=== PATIENT | female | born 1965 | race Caucasian/White ===

== ENCOUNTER 2021-03-08 14:06 | Inpatient (IN) | payer BC ==
[~2021-03-08] VITALS: Ht 165.1 cm; Wt 121.8 kg
--- NOTE | ~2021-03-08 | EMS ---
[facility] [address] [place] [address] EMS Patient Care Report Name: LISA FINCH Room #: PRE MONROE Pruitt#: [id number] Admission: Attend Phys: Discharge: Date of : 67 Report #: [id number] THIS REPORT FOR: //name// Report Transmitted: 03/08/2021 13:33 EMS Care Summary [facility] MED-ACT Incident [id number] @ 03/08/2021 13:17 Incident [address] [place] [address] Patient LISA FINCH Female, 56 Years 1965 Patient Address [address] [place] [address] Patient History Congestive Heart Failure (CHF),Novel Coronavirus (COVID-19), Patient Allergies Hydrocodone,Valium, Patient Medications Albuterol, Chief Complaint "My chest feels funny" Disposition Transported No Lights/[place] Dispatch Reason Breathing Problem Transported To [facility] Narrative [id number] responded emergent to a residence for a COVID positive pt with reported difficulty breathing. [id number] arrived on scene to find the pt laying supine in [facility] [address] [place] [address] EMS Patient Care Report Name: LISA FINCH Room #: PRE M.R.#: [id number] Admission: Attend Phys: Discharge: Date of : 67 Report #: [id number] bed, eyes closed, with family at her side and FD on pt care. Pt appears to be in no obvious respiratory distress. Family reports pt was diagnosed with COVID on 02/23. They state pt had not been feeling well today and noted her O2 on RA was 90% so they called 911. Pt reports a "funny feeling" and heaviness in her chest. It is noted pt shows a-fib on the monitor but pt states she has no known hx of a-fib but does have a hx of CHF. Pt has a non productive cough as well. Pt states she does feel short of breath. Pt is able to speak in full, clear sentences and has no accessory muscle use during respiration. Vitals, EKG and 12 lead as charted. Pt is able to sit on edge of bed, stand and take a few unassisted steps to the cot. Pt lays on cot in position of comfort and secured via 5 point seatbelt. Pt moved to ambulance. O2, ASA and IV as charted. Transport begins. Pt is quiet during transport, with eyes closed and in no distress. Pt to room 12, report given to RN and pt moved to bed via sheet without incident. Initial Vitals @13:31P: 140,SpO2: 92,ID Suspected: false @PTAP: 140,SpO2: 92, @13:56P: 113,SpO2: 96, @13:50P: 118,R: 14,BP: 118/84,SpO2: 94, @13:56P: 133,R: 14,BP: 114/53,SpO2: 96, @PTAP: 110,R: 16,BP: 152/90,Pain: 0/10,GCS: 15,SpO2: 93,Revised Trauma: 12, @13:39P: 71,R: 16,BP: 144/84,GCS: 15,Temp: 97.5F,SpO2: 96,Revised Trauma: 12, Impression Cardiac arrhythmia/dysrhythmia Procedures @13:30 ALS Assessment Response: UnchangedSucceeded @13:31 12-Lead ECG Response: UnchangedSucceeded @PTASurgical Mask on Patient Response: Unchanged @13:37 Aspirin - 324 Milligrams (mg) - Oral Response: Unchanged @13:39 IV Therapy - Saline Lock 10cc (20 ga) Site: Antecubital-Right Response: UnchangedSucceeded Timeline WIRE LOOP MACHINE OPERATOR,Surgical Mask on Patient,Response: Unchanged WIRE LOOP MACHINE OPERATOR,BP: / M,PULSE: 140,RR: R,SPO2: 92 Ox,ETCO2: ,BG: ,PAIN: ,GCS: , [facility] [address] [place] [address] EMS Patient Care Report Name: LISA FINCH Room #: PRE M.R.#: [id number] Admission: Attend Phys: Discharge: Date of : 67 Report #: [id number] WIRE LOOP MACHINE OPERATOR,BP: 152/90 M,PULSE: 110,RR: 16 R,SPO2: 93 Ox,ETCO2: ,BG: ,PAIN: 0,GCS: 15, 13:16,Call Received 13:16,Psap Call 13:17,Dispatched 13:17,En Route 13:26,On Scene 13:28,At Patient 13:30,ALS Assessment,Response: UnchangedSucceeded, 13:31,12-Lead ECG,Response: UnchangedSucceeded, 13:31,BP: / M,PULSE: 140,RR: R,SPO2: 92 Ox,ETCO2: ,BG: ,PAIN: ,GCS: , 13:37,Aspirin - 324 Milligrams (mg) - Oral,Response: Unchanged 13:39,IV Therapy - Saline Lock 10cc 20 ga Site: Antecubital-Right,Response: UnchangedSucceeded, 13:39,BP: 144/84 M,PULSE: 71,RR: 16 R,SPO2: 96 Ox,ETCO2: ,BG: ,PAIN: ,GCS: 15, 13:43,Depart Scene 13:50,BP: 118/84 M,PULSE: 118,RR: 14 R,SPO2: 94 Ox,ETCO2: ,BG: ,PAIN: ,GCS: , 13:56,BP: / M,PULSE: 113,RR: R,SPO2: 96 Ox,ETCO2: ,BG: ,PAIN: ,GCS: , 13:56,BP: 114/53 M,PULSE: 133,RR: 14 R,SPO2: 96 Ox,ETCO2: ,BG: ,PAIN: ,GCS: , 14:02,At Destination 14:20,Call Closed Disclaimer v1.1 Copyright 2020 [email or web address] This EMS Care Summary contains data elements from the applicable legal record (which may be displayed differently). It is designed to provide pertinent information for the following purposes: continuity of care, clinical quality, and state data reporting. The complete legal record is available to ED staff and administrators of the receiving hospital in [employer]'s Patient Tracker. All data is provided "as is."
[2021-03-08 14:09] VITALS: BP 139/81
[2021-03-08 14:28] LABS: ABSOLUTE NEUTROPHILS 3.9 thou/uL (1.4-8.2); BASOPHILS 0.8 % (0.0-2.0); EOSINOPHILS 0.8 % (0.0-3.0); HEMATOCRIT 43.1 % (37.0-47.0); HEMOGLOBIN 14.6 gm/dL (12.0-15.0); LYMPHOCYTES 23.3 % (24.0-44.0); MCHC 33.9 g/dL (28.0-37.0); MCV 85.5 fL (80.0-100.0); MONOCYTES 11.5 % (1.0-8.0); PLATELET COUNT 313 thou/uL (150-400); POLYS 63.6 % (36.0-66.0); RBC 5.04 mil/uL (4.20-5.00); RDW 14.1 % (10.5-14.5); WBC 6.2 thou/uL (4.0-11.0)
[2021-03-08 14:47] LABS: CALCIUM 8.2 mg/dL (8.5-10.1); POTASSIUM 3.1 mmol/L (3.5-5.1)
[2021-03-08 14:52] LABS: ALBUMIN 2.2 g/dL (3.4-5.0); TOTAL BILIRUBIN 0.3 mg/dL (0.2-1.0); TOTAL PROTEIN 6.9 g/dL (6.4-8.2)
[2021-03-08 16:36] LABS: BE(vivo) -1.7 mmol/L (-2 to +3); HCO3 20.4 mmol/L (22.0-26.0); PCO2 28.1 mmHg (35.0-45.0); PO2 61.4 mmHg (80.0-100.0); pH 7.479 (7.360-7.450); sO2 93.4 % (92.0-98.0)
--- NOTE | 2021-03-08 18:10 | NUR ---
INFECTIOUS DISEASE WAS CONTACTED FOR A CONSULT @2120 AND A VOICEMAIL MESSAGE WAS LEFT.
[2021-03-08 22:23] VITALS: BP 122/72
[2021-03-08 23:55] VITALS: BP 120/71
[2021-03-09] VITALS (7 sets, daily range): BP systolic 115–131; BP diastolic 65–82
--- NOTE | 2021-03-09 04:12 | NUR ---
ADMISSION: PT ARRIVED ON UNIT FROM ER AT APPROX 2350. PT ALERT & ORIENTED X 4. CURRENTLY ON 4L O2 NC AND O2 SATS 90-93%. PT AFIB ON TELE MONITOR AND HAS CARDIZEM DRIP RUNNING AT 20MG/HR. HR 78-90. VSS AFEBRILE. NO C/O OF PAIN, NAUSEA/VOMITTING. PT IS ABLE TO MAKE NEEDS KNOWN. SBA TO BSC. CARE PLAN IN PLACE & INTERVENTIONS SET. ALL NEEDS ARE MET AT THIS TIME.
[2021-03-09 05:32] LABS: HEMATOCRIT 40.8 % (37.0-47.0); HEMOGLOBIN 13.8 gm/dL (12.0-15.0); MCH 29.1 pg (26.0-34.0); MCHC 33.8 g/dL (28.0-37.0); MCV 86.3 fL (80.0-100.0); RBC 4.73 mil/uL (4.20-5.00); RDW 14.2 % (10.5-14.5); WBC 4.9 thou/uL (4.0-11.0)
[2021-03-09 05:51] LABS: CALCIUM 7.9 mg/dL (8.5-10.1); CREATININE 1.1 mg/dL (0.6-1.0); POTASSIUM 3.9 mmol/L (3.5-5.1)
--- NOTE | 2021-03-09 07:59 | HC ---
[facility] [place] [address] [place] [address] CONSULTATION Name: LISA FINCH Room #: 364-P [facility] IN .R.#: [id number] Admission: 03/08/21 Attend Phys: Shirley Mclaughlin MD Discharge: Date of : 67 Report #: [id number] THIS REPORT FOR: cc: YESSICA - No family physician/PCP FAM - No family physician/PCP Jose Armando Ayoub MD ~ DATE OF SERVICE: 03/08/2021 CHIEF COMPLAINT: Shortness of breath. HISTORY OF PRESENT ILLNESS: This is a 56-year-old female with apparent history of CHF, hypertension, presenting with increasing dyspnea, cough and nausea. She has a history of chronic tobacco use. She apparently tested positive for COVID on 02/23/2021, not vaccinated. Since then, she has been getting more shortness of breath with a cough. Last evening, she noted palpitations and presented to the ER for evaluation. ECG reveals atrial fibrillation with a rapid ventricular rate. Chest x-ray revealed bilateral pneumonia. Only chest pain with deep coughing. PAST MEDICAL HISTORY: Remote history of CHF, unknown details. Not on any medication. ALLERGIES: VALIUM, DIAZEPAM AND HYDROCODONE. MEDICATIONS AT HOME: None. SOCIAL HISTORY: Chronic tobacco use, pack per day. FAMILY HISTORY: Negative for premature CAD. REVIEW OF SYSTEMS: A full 10-point review of systems performed. Only the pertinent positives and negatives are described in the HPI. PHYSICAL EXAMINATION: VITAL SIGNS: Blood pressure is 130/90, heart rate is 115 beats per minute. GENERAL APPEARANCE: An overweight female in respiratory distress. HEENT: Normocephalic, atraumatic. Oral mucosa moist. NECK: Supple. LUNGS: Few basilar rhonchi. CARDIAC: Distant heart sounds, tachycardic, irregular. S1, S2 positive. ABDOMEN: Protuberant, soft. EXTREMITIES: No cyanosis. Positive edema. LABORATORY DATA: Creatinine is 1.0. Troponin is negative. White count 6.2, hemoglobin is 14.6, oxygen saturation on room air is 93%. Chest x-ray reveals bilateral opacities suspicious for moderate to severe COVID pneumonia. [facility] [address] [place] [address] CONSULTATION Name: LISA FINCH Room #: 364-P [facility] IN M.R.#: [id number] Admission: 03/08/21 Attend Phys: Shirley Mclaughlin MD Discharge: Date of : 67 Report #: [id number] ECG reveals atrial fibrillation at 120 beats per minute. ASSESSMENT AND PLAN: 1. Atrial fibrillation with rapid ventricular rate, attributed to recent COVID pneumonia with hypoxia. Started on Cardizem, we will need anticoagulation therapy. Echo when respiratory status has stabilized. 2. Respiratory failure/COVID pneumonia, treated as per ID and Pulmonary. 3. Edema, hold on diuretic therapy at this time. 4. Tobacco use, complete smoking cessation is advised. <ELECTRONICALLY SIGNED> By: Jose Armando Ayoub MD 03/09/21 0759 1648 2230 Jose Armando Ayoub MD /emily
--- NOTE | 2021-03-09 12:30 | EKG ---
[address] [place] [address] ELECTROCARDIOGRAM REPORT Name: LISA FINCH Room #: 364-P ADM IN M.R.#: [id number] Admission: 03/08/21 Attend Phys: Shirley Mclaughlin MD Discharge: Date of : 67 Report #: [id number] [facility] ED Test Date: 2021-03-08 Test Time: 14:16:18 Pat Name: LISA FINCH Department: Room: 364 Gender: F Manager Lsw: yvonne : 1965 Requested By: Belgica Panchal Order Number: [id number] MD: Jose Armando Ayoub Measurements Intervals [place] Rate: 121 P: ND: QRS: 34 QRSD: 76 T: 28 QT: 307 QTc: 436 Interpretive Statements Atrial fibrillation Abnormal R-wave progression, early transition Baseline wander in lead(s) V2 No previous ECG available for comparison Electronically Signed On 03-09-2021 12:30:15 LABOR RELATIONS DIRECTOR by Jose Armando Ayoub [email or web address] <ELECTRONICALLY SIGNED> By: Jose Armando Ayoub MD 03/09/21 1230 1416 1416 Jose Armando Ayoub MD /EPI
--- NOTE | 2021-03-09 18:08 | NUR ---
PT LUNGS SOUND WHEEZY...ENCOUAGE C/DB AND USE OF IS...WEANED FROM 4L TO 3L THIS MORN...INQUIRED ABOUT A NICOTENE PATCH BUT PATIENT DECLINED...
[2021-03-10 04:06] LABS: GLYCOHEMOGLOBIN (HGB A1C) 7.1 % (4.8-5.6)
[2021-03-10 05:10] VITALS: BP 123/69
--- NOTE | 2021-03-10 06:04 | NUR ---
ASSUMED PT CARE AT 1900. PT ALERT & ORIENTED X 4. VSS AFEBRILE. PT IS CURRENTLY ON RA AND O2 SATS 93-95%. PT AFIB ON TELE MONITOR. HR 85-95. NO C/O OF PAIN, NAUSEA/VOMITTING. COLLECTED SPUTUM SAMPLE FOR CULTURE. AWAITNG RESULTS. PT IS ABLE TO MAKE NEEDS KNOWN. CONTINUE WITH PLAN OF CARE.
--- NOTE | 2021-03-10 07:13 | EKG ---
[place] [address] [facility] [place] [address] ELECTROCARDIOGRAM REPORT Name: LISA FINCH Room #: 364-P ADM IN M.R.#: [id number] Admission: 03/08/21 Attend Phys: Shirley Mclaughlin MD Discharge: Date of : 67 Report #: [id number] [facility] Test Date: 2021-03-09 Test Time: 07:54:46 Pat Name: LISA FINCH Department: Room: 364 P Gender: F Steward/Stewardess Third: NURIA : 1965 Requested By: Shirley Mclaughlin Order Number: [id number] MD: Hung Rider Measurements Intervals [place] Rate: 84 P: 246 MA: 50 QRS: 13 QRSD: 99 T: 2 QT: 367 QTc: 434 Interpretive Statements AFIB Short MA interval Low voltage, precordial leads Borderline repolarization abnormality Compared to ECG 03/08/2021 14:16:18 Short MA interval now present Low QRS voltage now present Electronically Signed On 03-10-2021 7:13:05 BOTTLING LINE ATTENDANT by Hung Rider [email or web address] <ELECTRONICALLY SIGNED> By: Hung Rider MD, [facility] 03/10/21 0713 0754 0754 Hung Rider MD, FACC /EPI
[2021-03-10 07:19] VITALS: BP 141/87
--- NOTE | 2021-03-10 07:35 | HC ---
[facility] [place] [address] CONSULTATION Name: LISA FINCH Room #: 364-P [facility] IN M.R.#: [id number] Admission: 03/08/21 Attend Phys: Shirley Mclaughlin MD Discharge: Date of : 67 Report #: [id number] THIS REPORT FOR: cc: YESSICA - Alison family physician/PCP YESSICA - No family physician/PCP Se Luciano MD ~ DATE OF SERVICE: 03/09/2021 INFECTIOUS DISEASE CONSULTATION ATTENDING PHYSICIAN: Dr. Shirley Mclaughlin. REASON FOR EVALUATION: COVID-19 infection, complicated by pneumonitis and respiratory failure. HISTORY OF PRESENT ILLNESS: Chart reviewed. The patient examined. This is a 56-year-old woman without significant medical history who had been ill for an excess of 2 weeks, was tested positive on 02/23/2021 with COVID-19, had shown fluctuating course including ultimately a more recent progressive dyspnea, cough, intermittent fevers, did note a depressed p.o. intake and although she was pushing fluids, due to concerns about shortness of breath, she did present to the Emergency Room. Evaluation was undertaken. Chest x-ray did show diffuse bilateral infiltrates. Coronavirus testing again was confirmed with positive PCR, although negative antigen, influenza testing was negative. Lactic acid 1.5. ABGs show pH 7.479, pCO2 of 28.1, pO2 of 61.4 on room air. Blood cultures collected at time of admission are sterile thus far. She was empirically started on therapy with ceftriaxone, azithromycin and corticosteroids. At this point, she states she feels better attributable to the supplemental oxygen, primarily. She is generally lucid. Denies significant GI related complaints at present. ALLERGIES: DIAZEPAM, HYDROCODONE. CURRENT MEDICATIONS: Include enoxaparin, atenolol, azithromycin, ceftriaxone, dexamethasone, ipratropium, albuterol inhaler. PAST MEDICAL HISTORY: Has known history of hypertension, cardiomyopathy with history of congestive heart failure, previous tonsillectomy, cholecystectomy, appendectomy, hysterectomy, history of depression. SOCIAL HISTORY: Smokes cigarettes, 54-uven-staa history. No ethanol, no illicit drug use. FAMILY HISTORY: Noncontributory. REVIEW OF SYSTEMS: Otherwise, unremarkable. [facility] [address] [place] [address] CONSULTATION Name: LISA FINCH Room #: 364-P [facility] IN [facility].#: [id number] Admission: 03/08/21 Attend Phys: Shirley Mclaughlin MD Discharge: Date of : 67 Report #: [id number] PHYSICAL EXAMINATION: GENERAL: She appears somewhat chronically ill. She is pleasant, cooperative, appropriate. VITAL SIGNS: Temperature 97.3, pulse 56, respirations 16, blood pressure 126/76. SKIN: Warm, dry, no rashes. HEENT: Normocephalic. Extraocular muscles intact. Nasal cannula in place. NECK: Supple. LUNGS: Bilateral scattered coarse breath sounds, somewhat diminished overall. HEART: Regular. I do not appreciate a murmur. ABDOMEN: Obese, somewhat firm, nontender. EXTREMITIES: No cyanosis. GENITOURINARY AND RECTAL: Deferred. LABORATORY DATA: Electrolytes: Sodium 141, potassium 3.9, chloride 108, bicarbonate is 21, anion gap of 12, BUN and creatinine 12 and 1.1, glucose of 266. CBC: White count of 4.9, H and H 13.8 and 40.8, platelets of 313. CTA of the chest showed no evidence of pulmonary embolus, multifocal pneumonia. Normal troponin. Lactic acid 1.5. D-dimer 1.12. ProBNP of 405. ASSESSMENT AND PLAN: COVID-19 infection, complicated by pneumonitis and respiratory failure, perhaps some underlying lung disease and may have some prediabetes as well noted. Initial glucose was 106; however, repeat was 266, probably induced by corticosteroids. We will continue current therapy with azithromycin, ceftriaxone. Try to obtain a sputum result. She is generally felt to be outside the window for remdesivir. Continue corticosteroids. We will add vitamins, oxygen therapy as allowed. Monitor expectantly. We will follow. <ELECTRONICALLY SIGNED> By: Se Luciano MD 03/10/21 0735 0801 0836 Se Luciano MD /nt
[2021-03-10 11:30] VITALS: BP 151/87
[2021-03-10 15:24] VITALS: BP 134/95
[2021-03-10 19:25] VITALS: BP 150/86
[2021-03-10 23:16] VITALS: BP 153/99
[2021-03-11 04:44] VITALS: BP 137/80
--- NOTE | 2021-03-11 04:57 | NUR ---
C/O being short of breath around 2315 , more than the usual. O2 sat in the mid 90's on 2L/NC. RT paged to give pt. a breathing tx with relief.Encouraged prone positioning and use of IS. Verbalized she does not think she could tolerate sleeping on her stomach. She gets very short of breath with minimal exertion. Up ad jeremías to the bathroom then gets tachycardic ( A fib RVR) but recovers after resting. Cont. on enhanced precaution , afebrile.
[2021-03-11 07:56] VITALS: BP 133/88
[2021-03-11 11:35] VITALS: BP 149/89
[2021-03-11 15:25] VITALS: BP 152/85
--- NOTE | 2021-03-11 16:15 | NUR ---
INITIAL ASSESSMENT: DOMINICK reviewed chart and spoke with nursing and attending physician. Pt was admitted from home due to chest pain/Afib with RVR/COVID pneumonia. Pt placed in Enhanced Isolation due to COVID. Pt has not had a COVID Vaccination. Pt had first positive test on 02/23. Pt is afebrile and on 2L of O2. Pt is on IV abx. DOMINICK spoke with pt via phone. Introduced role of SW. Pt is alert/orientated x 4. Pt reports she lives at home with her spouse and children. Prior to admission, pt was independent with ADLs. No use of DME. Pt does have an inhaler at home. Pt does not currently have a PCP, but is interested in provider groups at [facility]. No hx of services or post-acute placement. Plan is for pt to discharge home when medically stable. DOMINICK is following to assist as needed with discharge planning.
--- NOTE | 2021-03-11 18:32 | NUR ---
ASSUMED PATIENT CARE AT 0700. A/O X4. AFIB ON MONITOR. DENIES PAIN. AMBULATED IN ROOM. PROGRESSING TOWARDS POC GOALS.
[2021-03-11 19:37] VITALS: BP 155/90
[2021-03-11 19:50] VITALS: BP 130/73
[2021-03-12] VITALS (9 sets, daily range): BP systolic 130–154; BP diastolic 78–97
--- NOTE | 2021-03-12 03:33 | NUR ---
Slept intermittently during the night. She stated she is achy all over and can't get comfortable (tossing and turning on bed). She requested for ibuprofen. BIRD RAISER notified and order received. A fib per tele with episodes of HR in the 120's 140's when abulating to the bathroom. O2 at 2L/NC . She c/o of dry nose and bleeding because of that. Humidifier applied and stated it helped. Cont. on enhanced precaution , afebrile.
[2021-03-12 05:26] LABS: CALCIUM 8.1 mg/dL (8.5-10.1); CREATININE 0.9 mg/dL (0.6-1.0); POTASSIUM 4.5 mmol/L (3.5-5.1)
--- NOTE | 2021-03-12 05:56 | NUR ---
Glucose level per BMP this am 346 .SLAG MOTOR OPERATOR notified , BG ACHS with low dose SS ordered.
--- NOTE | 2021-03-12 15:15 | NUR ---
SW reviewed chart and spoke with nursing and attending physician. Pt remains in Enhanced Isolation due to COVID. Pt is afebrile and on 2L of O2. Pt started on cardizem gtt today due to A-fib. Pt to be given IV lasix. Discharge home is anticipated in 1-2 days. Will need rest/exercise oximetry ordered prior to discharge to determine home O2 needs. Plan is for pt to discharge home when medically stable. DOMINICK is following to assist as needed with discharge planning.
--- NOTE | 2021-03-12 16:07 | NUR ---
assumed care of pt at 0700. pt alert and oriented, mildly anxious at times. rapid afib this morning despite atenolol. cardizem PO added. some improvement, but HR remains 110-120s. Lasix added by cardiology. edematous to lower ext. up ad ib w/ steady gait. complains of occasional chest pain with exertion and SOA despite maintain spo2 on room air. O2 provided PRN for comfort. calls out appropriately. will cont to monitor.
--- NOTE | 2021-03-13 03:42 | NUR ---
Requested ibuprofen for generalized ache and verbalized some relief. She stated she slept intermittently and not much. Up ad jeremías in the room with steady gait. Tachycardic up to 150's , afib with activities. Dr. Ayoub notified, cardizem bolus given and drip started. HR has been controlled since. Tolerating room air well though she gets short of breath with exertion. Cont. on enhanced precaution , afebrile.
[2021-03-13 04:11] VITALS: BP 131/84
--- NOTE | 2021-03-13 07:45 | EKG ---
[address] [address] ELECTROCARDIOGRAM REPORT Name: LISA FINCH Room #: 364-P ADM IN M.R.#: [id number] Admission: 03/08/21 Attend Phys: Shirley Mclaughlin MD Discharge: Date of : 67 Report #: [id number] [facility] Test Date: 2021-03-12 Test Time: 12:39:36 Pat Name: LISA FINCH Department: Room: 364 P Gender: F Sausage Wrapper: MARY : 1965 Requested By: Angel Chilel Order Number: [id number] MD: Hung Rider Measurements Intervals [place] Rate: 109 P: NM: QRS: 31 QRSD: 84 T: -12 QT: 315 QTc: 425 Interpretive Statements Atrial fibrillation Borderline repolarization abnormality Compared to ECG 03/09/2021 07:54:46 Short NM interval no longer present Electronically Signed On 03-13-2021 7:45:05 BREAKFAST MANAGER by Hung Rider [email or web address] <ELECTRONICALLY SIGNED> By: Hung Rider MD, [facility] 03/13/21 0745 1239 1239 Hung Rider MD, FACC /EPI
[2021-03-13 07:59] VITALS: BP 128/79
[2021-03-13] MEDS ORDERED: ATENOLOL 25MG T25 MG PO ×2 (09:57→10:21)
[2021-03-13] MEDS ORDERED: ELIQUIS5 MG PO (09:57)
[2021-03-13] MEDS ORDERED: CARTIA XT240 M1 PO (09:57)
[2021-03-13] MEDS ORDERED: PACERONE200 MG PO (10:23)
[2021-03-13 11:32] VITALS: BP 142/78
[2021-03-13] MEDS ORDERED: VITAMIN D325 MC2 PO (12:45)
[2021-03-13] MEDS ORDERED: LEVALBUTEROL TA15 GM INH (12:45)
[2021-03-13] MEDS ORDERED: DEXAMETHASONE2 MG PO (12:45)
[2021-03-13] MEDS ORDERED: TRADJENTA5 MG PO (12:45)
[2021-03-13] MEDS ORDERED: TESSALON PERLE100 MG PO (12:45)
[2021-03-13] MEDS ORDERED: CEFDINIR300 MG PO (12:45)
[2021-03-13] MEDS ORDERED: ZINC SULFATE50 MG PO (12:45)
[2021-03-13] MEDS ORDERED: METFORMIN HCL500 MG PO (12:45)
[2021-03-13] MEDS ORDERED: PEPCID20 MG PO (12:45)
[2021-03-13] MEDS ORDERED: ACEROLA C500 MG PO (12:45)
[2021-03-13] MEDS ORDERED: OTHER MISCELL (12:49)
--- NOTE | 2021-03-13 13:04 | NUR ---
DISCHARGE NOTE: SW reviewed chart and spoke with nursing and attending physician. Pt remains in Enhanced Isolation due to COVID. Pt is afebrile and on room air. Pt started on cardizem gtt overnight due to Afib with RVR. Pt is medically stable for discharge home today. SW spoke with pt via phone to provide update and discuss discharge plan. Pt is aware and in agreement with discharge plan. Pt's family will be able to provide transportation home. SW placed contact info for provider groups at [facility] in pt's discharge summary for pt to establish primary care. Pt is aware and will need to set up an appt. No additional SW needs identified at this time. SW is available to assist should needs arise.
--- NOTE | 2021-03-13 14:08 | NUR ---
ASSUMEDPATIENT CARE AT 0700. A/O X4. AMBULATED IN ROOM. A FIB ON MONITOR. DENIES CHEST PAIN. DC TO HOME NOW.
== END 2021-03-13 14:56 | disposition home or self-care (01) | DRG 177 ==
LOC: ER 14:06 → 3W 17:08 → EROBS 17:08 → 3W 22:24
PROVIDERS: Emergency Medicine; Hospitalist; Specialist; ADMIT Internal Medicine; ATTEND Internal Medicine
DX: U07.1 COVID-19 (principal); J12.82 Pneumonia due to coronavirus disease 2019; J80 Acute respiratory distress syndrome; Z68.41 Body mass index [BMI] 40.0-44.9, adult; I42.9 Cardiomyopathy, unspecified; I50.9 Heart failure, unspecified; I48.91 Unspecified atrial fibrillation; E11.65 Type 2 diabetes mellitus with hyperglycemia; T38.0X5A Adverse effect of glucocorticoids and synthetic analogues, initial encounter; E66.9 Obesity, unspecified; R60.0 Localized edema; R79.1 Abnormal coagulation profile; F32.A Depression, unspecified; I11.0 Hypertensive heart disease with heart failure; F17.210 Nicotine dependence, cigarettes, uncomplicated; Z79.899 Other long term (current) drug therapy; Z88.5 Allergy status to narcotic agent; Z88.8 Allergy status to other drugs, medicaments and biological substances; Z90.49 Acquired absence of other specified parts of digestive tract; Z90.710 Acquired absence of both cervix and uterus; Z71.6 Tobacco abuse counseling; Y92.89 Other specified places as the place of occurrence of the external cause
CPT/HCPCS: 10779; 10879